=== PATIENT | male | born 1965 | race Caucasian/White ===

== ENCOUNTER 2017-11-13 20:13 | Emergency (ER) | payer BC, SELFPAY | END 2017-11-13 22:17 | disposition home or self-care (01) | PROVIDERS: Family Provider Family Medicine; PCP Family Medicine | DX: L03.317 Cellulitis of buttock (principal) | CPT/HCPCS: 99283 ==

== ENCOUNTER 2019-03-21 21:06 | Emergency (ER) | payer OTHER, SELFPAY ==
[2019-03-21 21:13] VITALS: BP 156/83; PULSE 84; RESP 16; TEMP 36.5; O2SAT 97; BMI 46.0
--- NOTE | 2019-03-21 21:31 | ED.SKABFB ---
HPI - Skin/Abscess/Foreign Bdy General Chief complaint: Skin/Abscess/Foreign Body Stated complaint: states reoccuring infection Time Seen by Provider: 03/21/19 21:08 Source: patient and family Mode of arrival: ambulatory Limitations: no limitations History of Present Illness HPI narrative: 53-year-old male nonsmoker presents with his in the chief complaint of a recurrence of some pain, redness and warmth in his lower back. He has a longstanding history of recurrent skin infections which were initially thought to be pilonidal cyst but in the end are not. Patient had a protracted hospitalization with complications at 1 point and since has been encouraged to present immediately upon development of symptoms. He states he started developing this pain about 1 hour prior to arrival. He has no systemic findings such as fever, chills nor nausea vomiting or weakness. He denies any pain in his rectum, with urination or with bowel movements. MD complaint: abscess/boil Onset (ago): hour(s) Tetanus up to date: yes Location: buttocks Severity: mild Quality: aching Pain Consistency: constant Relieving factors: none Exacerbating factors: palpation Context: none Associated symptoms: denies other symptoms Treatments prior to arrival: none Related Data Home Medications Medication Instructions Recorded Confirmed tramadol 50 mg PO QDAY #0 06/15/16 Previous Rx's Medication Instructions Recorded prednisone 50 mg PO AMCC 5 Days #0 tab 06/15/16 cephalexin 500 mg PO QID 10 Days #0 cap 06/01/17 sulfamethoxazole-trimethoprim 1 tab PO BID 10 Days #0 tab 06/01/17 cephalexin [Keflex] 500 mg PO Q6H 10 Days #0 cap 07/04/17 sulfamethoxazole-trimethoprim 1 tab PO BID 10 Days #0 tab 07/04/17 cephalexin [Keflex] 500 mg PO QID #10 cap 11/13/17 cephalexin [Keflex] 500 mg PO QID 10 Days #0 cap 11/13/17 sulfamethoxazole-trimethoprim 1 tab PO BID 10 Days #0 tab 11/13/17 doxycycline monohydrate 100 mg PO BID 10 Days #20 cap 03/21/19 tramadol [Ultram] 50 mg PO Q8H PRN #10 tab 03/21/19 Allergies Allergy/AdvReac Type Severity Reaction Status Date / Time No Known Allergies Allergy Uncoded 03/21/19 21:16 Review of Systems Constitutional Denies chills, Denies fever(s), Denies lethargy and Denies weakness Eyes Denies change in vision, Denies eye discharge, Denies irritation and Denies loss of vision ENT Ears, Nose, Mouth, and Throat: Denies change in voice, Denies neck pain and Denies sore throat Cardiovascular Denies chest pain, Denies irregular heart rhythm, Denies lightheadedness, Denies palpitations, Denies dyspnea, Denies dyspnea on exertion and Denies orthopnea Respiratory Denies cough, Denies dyspnea, Denies dyspnea on exertion and Denies wheezing Gastrointestinal Gastrointestinal: Denies abdominal pain, Denies change in bowel habits, Denies diarrhea, Denies nausea and Denies vomiting Genitourinary Denies hematuria, Denies flank pain, Denies urinary incontinence and Denies urinary urgency Musculoskeletal Denies neck pain Integumentary/Breasts Denies pruritus, Reports erythema, Denies rash, Reports skin pain and Denies wounds Neurologic Denies confusion, Denies loss of vision and Denies weakness Psychiatric Denies anxiety, Denies confusion, Denies depression, Denies homicidal ideation and Denies suicidal ideation Endocrine Denies palpitations Hematologic/Lymphatic Denies easy bruising Allergic/Immunologic Denies wheezing PFSH Social History Smoking Status: Never smoker Social History Smoking Status: Never smoker Exam Narrative Exam Narrative: GEN: AOx3 and in mild distress EYES: Pupils are equal, round, and reactive to light and accommodation. Extraoccular muscles are intact bilaterally. There is no subconjunctival hemorrhage or exudate. CHEST: Lungs are clear to auscultation bilaterally and free of wheezes, rales, or rhonchi. Heart rate is regular rhythm, there are no murmurs, clicks, rubs, or gallops. There is no chest wall tenderness. ABD: Abdomen is soft and nontender. There is no guarding or rebound. Bowel sounds are normal in all 4 quadrants. There is no mass or organomegaly. BACK: mild erythema, tenderness to palp of superior L buttock. No fluctuance EXT: Full painless ROM of all extremities with no loss of sensation or strength. SKIN: Warm, pink, and dry. No erythema or rash other than that which is stated above Initial Vital Signs Initial Vital Signs: Vital Signs Temperature 97.7 F 03/21/19 21:13 Pulse Rate 84 03/21/19 21:13 Respiratory Rate 16 03/21/19 21:13 Blood Pressure 156/83 H 03/21/19 21:13 Pulse Oximetry 97 03/21/19 21:13 Course Orders Ordered: Discontinued Medications Doxycycline Hyclate (Vibramycin) 100 mg PO NOW ONE Stop: 03/21/19 21:20 Last Admin: 03/21/19 21:32 Dose: 100 mg Vital Signs - 8 hr 03/21/19 21:13 03/21/19 22:03 Temperature 97.7 F Pulse Rate 84 71 Respiratory Rate 16 15 Blood Pressure 156/83 H 140/78 Pulse Oximetry 97 97 MDM - Skin/Abscess/Foreign Bdy MDM Narrative Medical decision making narrative: Patient has painful skin lesion with some erythema and warmth in the region of recurring infection. He has no systemic findings, labs not indicated at this point time. There is no fluctuance or induration, no incision and drainage indicated at this time. Return precautions given and patient's questions answered to his apparent satisfaction Discharge Plan Departure Patient Disposition: Home Clinical Impression: Cellulitis Qualifiers: Site of cellulitis: buttock Qualified Code(s): L03.317 - Cellulitis of buttock Discharge Date/Time: 03/21/19 22:05 Interventions: ED Discharge Assessment Last Done: 03/21/19 22:03 Instructions: DI for Cellulitis -- Adult Activity Restrictions/Additional Instructions: *You have been diagnosed with [buttock cellulitis] *What to do: *Take medications as directed: Your antibiotic has been electronically transmitted to the [facility] in [place] at your request *Follow up with your primary care provider in 2-3 days, call for an appointment. Let them know you were seen in the Emergency Department and that we ask that you be seen in follow up *Return to ER if you should have any new, worsening or concerning symptoms, such as [fever, shaking chills, sweating profusely, vomiting or other bothersome symptoms] Prescriptions: New doxycycline monohydrate 100 mg capsule 100 mg PO BID 10 Days Qty: 20 RF: 0 tramadol [Ultram] 50 mg tablet 50 mg PO Q8H PRN (Reason: pain) Qty: 10 RF: 0 No Action tramadol 50 MG tablet 50 mg PO QDAY Qty: 0 RF: 0 prednisone 50 MG tablet 50 mg PO AMCC 5 Days Qty: 0 RF: 0 sulfamethoxazole-trimethoprim 800 MG/160 MG tablet 1 tab PO BID 10 Days Qty: 0 RF: 0 cephalexin 500 MG capsule 500 mg PO QID 10 Days Qty: 0 RF: 0 cephalexin [Keflex] 500 MG capsule 500 mg PO Q6H 10 Days Qty: 0 RF: 0 sulfamethoxazole-trimethoprim 800 MG/160 MG tablet 1 tab PO BID 10 Days Qty: 0 RF: 0 sulfamethoxazole-trimethoprim 800 MG/160 MG tablet 1 tab PO BID 10 Days Qty: 0 RF: 0 cephalexin [Keflex] 500 MG capsule 500 mg PO QID Qty: 10 RF: 0 cephalexin [Keflex] 500 MG capsule 500 mg PO QID 10 Days Qty: 0 RF: 0 Referrals: Sussy Strickland DO [Primary Care Provider] -
[2019-03-21] MEDS: DOXYCYCLINE HYCLATE 100 MG TABLET PO (21:32)
[2019-03-21 22:03] VITALS: BP 140/78; PULSE 71; RESP 15; O2SAT 97
== END 2019-03-21 22:05 | disposition home or self-care (01) ==
PROVIDERS: Emergency Provider Emergency Medicine; PCP Family Medicine
DX: L03.317 Cellulitis of buttock (principal)
CPT/HCPCS: 99282; 99283

== ENCOUNTER 2020-02-20 19:22 | Emergency (ER) | payer OTHER, SELFPAY ==
[2020-02-20] VITALS (11 sets, daily range): BP systolic 109–196; BP diastolic 55–108; PULSE 102–127; RESP 15–24; TEMP 37.1; O2SAT 96–98; BMI 46.0
[2020-02-20] MEDS: SODIUM CHLORIDE 0.9% 1,000 ML 1000 ML IV (19:44)
[2020-02-20 19:51] LABS: Add Manual Diff / Slide Review NO; Basophils Absolute Auto 100 /uL (0-100); Basophils Percent Auto 0.8 % (0-2); Eosinophils Absolute Auto 100 /uL (0-450); Eosinophils Percent Auto 0.8 % (2-4); Hematocrit 46.1 % (41-53); Hemoglobin 15.3 g/dL (13.5-17.5); Lymphocytes Absolute Auto 3100 /uL (1100-4500); Lymphocytes Percent Auto 20.2 % (25-40); Mean Corpuscular HGB Conc 33.3 % (30-36); Monocytes Absolute Auto 1800 /uL (0-900); Monocytes Percent Auto 12.2 % (3-14); Neutrophils Absolute Auto 10000 /uL (1500-7000); Platelet Count 337 X10^3/uL (150-400); Red Blood Cell Count 5.29 X10^6/uL (4.5-5.9); Red Cell Distribution Width 14.6 % (11.6-14.8); White Blood Cell Count 15.2 X10^3/uL (4.5-11.0)
[2020-02-20 19:59] LABS: Alanine Aminotransferase 36 IU/L (<50); Albumin 4.5 g/dL (3.5-5.0); Albumin Globulin Ratio 1.3 (1.0-2.8); Alkaline Phosphatase 77 U/L (38-126); Aspartate Aminotransferase 35 IU/L (17-59); Bilirubin Total 0.6 mg/dL (0.2-1.3); Blood Urea Nitrogen 18 mg/dL (9-20); Calcium 9.7 mg/dL (8.4-10.2); Carbon Dioxide 26 mmol/L (22-32); Chloride 104 mmol/L (98-107); Estimated Glomerular Filt Rate > 60.0 mL/min (>60); Globulin 3.4 g/dL (1.7-4.1); Glucose 116 mg/dL (70-100); HEMOLYSIS 54 (0-50); Lactate (Lactic Acid) 1.7 mmol/L (0.7-2.1); Lipase 91 U/L (23-300); Sodium 139 mmol/L (137-145); Total Protein 7.9 g/dL (6.3-8.2)
[2020-02-20 20:18] LABS: Procalcitonin < 0.05 ng/mL (<0.5)
--- NOTE | 2020-02-20 20:32 | ED_ITS ---
HPI - Skin/Abscess/Foreign Bdy General Chief complaint: Skin/Abscess/Foreign Body Stated complaint: reoccuring infection Time Seen by Provider: 02/20/20 19:41 Source: patient Mode of arrival: Ambulatory Limitations: no limitations History of Present Illness HPI narrative: Patient is a 54-year-old male here for evaluation of body aches and when he states cellulitis in his lower back/sacral area. Patient states he has had multiple infections in the same area in the past. The last 1 was approximately 1 year ago. During his 1st infection he stated that he did have surgery for the area. Upon further discussion the patient appears that they were evaluating for potential pilonidal cyst/abscess. He states that during that surgery there was no abscess found and it was determined that it was just a cellulitis. Since that time he has had multiple infections. He states that most the time he gets placed on oral antibiotics and the symptoms improved. He has needed IV antibiotics in the past. He was told that if this ever happened again that he should come in as soon as possible to get started on antibiotics to avoid potentially having to need to be admitted for IV antibiotics. He does describe body aches and chills. No change in bowel habits. Has not tried anything for these particular symptoms prior to arrival. Related Data Home Medications Medication Instructions Recorded Confirmed tramadol 50 mg PO QDAY #0 06/15/16 Previous Rx's Medication Instructions Recorded prednisone 50 mg PO AMCC 5 Days #0 tab 06/15/16 cephalexin 500 mg PO QID 10 Days #0 cap 06/01/17 sulfamethoxazole-trimethoprim 1 tab PO BID 10 Days #0 tab 06/01/17 cephalexin [Keflex] 500 mg PO Q6H 10 Days #0 cap 07/04/17 sulfamethoxazole-trimethoprim 1 tab PO BID 10 Days #0 tab 07/04/17 cephalexin [Keflex] 500 mg PO QID #10 cap 11/13/17 cephalexin [Keflex] 500 mg PO QID 10 Days #0 cap 11/13/17 sulfamethoxazole-trimethoprim 1 tab PO BID 10 Days #0 tab 11/13/17 tramadol [Ultram] 50 mg PO Q8H PRN #10 tab 03/21/19 doxycycline hyclate 100 mg PO BID 10 Days #20 cap 02/20/20 Allergies Allergy/AdvReac Type Severity Reaction Status Date / Time No Known Drug Allergies Allergy Verified 02/20/20 19:33 Review of Systems Constitutional Constitutional: Reports chills and Reports fever(s) ENT Ears, Nose, Mouth, and Throat: Denies vertigo Cardiovascular Cardiovascular: Denies chest pain and Denies dyspnea Respiratory Respiratory: Denies dyspnea Gastrointestinal Gastrointestinal: Denies abdominal pain Musculoskeletal Musculoskeletal: Denies arthralgias and Denies myalgias Integumentary/Breasts Comments: Redness lower back/sacral area Neurologic Neurologic: Denies behavioral changes and Denies vertigo Psychiatric Psychiatric: Denies behavioral changes Hematologic/Lymphatic Hematologic/Lymphatic: Denies easy bleeding and Denies easy bruising Patient History Medical History Cellulitis (Acute) Social History Smoking Status: Never smoker Smoking Status: Never smoker alcohol intake frequency: holidays/special occasions only Substance Use Type: does not use Exam Initial Vital Signs Initial Vital Signs: Vital Signs Temperature 98.8 F 02/20/20 19:28 Pulse Rate 127 H 02/20/20 19:28 Respiratory Rate 16 02/20/20 19:28 Blood Pressure 196/108 H 02/20/20 19:28 Pulse Oximetry 98 02/20/20 19:28 Const General: cooperative, healthy appearing and comfortable Resp Effort & Inspection: normal respiratory effort Auscultation: clear to auscultation bilaterally Cardio Rate: tachycardic Rhythm: regular rhythm Skin Other: Patient with a palm size area of redness in the lower back over the sacrum. There is no fluctuance to the area. There is no drainage. Extrem General: normal to inspection and capillary refill normal Psych Appearance: grossly normal and well kempt Course Orders Ordered: ED Orders 02/20/20 21:45 Blood Culture Stat Discontinued Medications Doxycycline Hyclate (Vibramycin) 100 mg PO NOW ONE Stop: 02/20/20 21:49 Last Admin: 02/20/20 21:51 Dose: 100 mg Documented by: JAMAAL Sodium Chloride (Normal Saline 0.9%) 1,000 mls @ 1,000 mls/hr IV BOLUS ONE Stop: 02/20/20 20:40 Last Infusion: 02/20/20 21:22 Dose: 0 mls/hr Documented by: Admin: 02/20/20 19:44 Dose: 1,000 mls/hr Documented by: JAMAAL Vital Signs Vital signs: Vital Signs - 8 hr 02/20/20 19:28 Temperature 98.8 F Pulse Rate 127 H Respiratory Rate 16 Blood Pressure 196/108 H Pulse Oximetry 98 MDM - Skin/Abscess/Foreign Bdy Lab Data Attestation: I reviewed the patient's lab results. Result diagrams: 02/20/20 19:40 02/20/20 19:40 Labs: Lab Results 02/20/20 02/20/20 02/20/20 Range/Units 19:40 19:40 19:40 WBC 15.2 H (4.5-11.0) X10^3/uL RBC 5.29 (4.5-5.9) X10^6/uL Hgb 15.3 (13.5-17.5) g/dL Hct 46.1 (41-53) % MCV 87.0 (80-100) fL MCH 29.0 (26-34) PG MCHC 33.3 (30-36) % RDW 14.6 (11.6-14.8) % Plt Count 337 (150-400) X10^3/uL Neut % (Auto) 66.0 (50-75) % Lymph % (Auto) 20.2 L (25-40) % [place] % (Auto) 12.2 (3-14) % Eos % (Auto) 0.8 L (2-4) % Baso % (Auto) 0.8 (0-2) % Neut # (Auto) 42889 H (1448-5040) /uL Lymph # (Auto) 3100 (2062-6005) /uL [place] # (Auto) 1800 H (0-900) /uL Eos # (Auto) 100 (0-450) /uL Baso # (Auto) 100 (0-100) /uL Sodium 139 (137-145) mmol/L Potassium 4.0 (3.4-5.1) mmol/L Chloride 104 (98-107) mmol/L Carbon Dioxide 26 (22-32) mmol/L BUN 18 (9-20) mg/dL Creatinine 0.90 (0.66-1.25) mg/dL Estimated GFR > 60.0 (>60) mL/min BUN/Creatinine Ratio 20.0 (6-22) Glucose 116 H (70-100) mg/dL Lactate (0.7-2.1) mmol/L Calcium 9.7 (8.4-10.2) mg/dL Total Bilirubin 0.6 (0.2-1.3) mg/dL AST 35 (17-59) IU/L ALT 36 (<50) IU/L Alkaline Phosphatase 77 (38-126) U/L Total Protein 7.9 (6.3-8.2) g/dL Albumin 4.5 (3.5-5.0) g/dL Globulin 3.4 (1.7-4.1) g/dL Albumin/Globulin Ratio 1.3 (1.0-2.8) Lipase (23-300) U/L Procalcitonin < 0.05 (<0.5) ng/mL 02/20/20 02/20/20 Range/Units 19:40 19:40 WBC (4.5-11.0) X10^3/uL RBC (4.5-5.9) X10^6/uL Hgb (13.5-17.5) g/dL Hct (41-53) % MCV (80-100) fL MCH (26-34) PG MCHC (30-36) % RDW (11.6-14.8) % Plt Count (150-400) X10^3/uL Neut % (Auto) (50-75) % Lymph % (Auto) (25-40) % [place] % (Auto) (3-14) % Eos % (Auto) (2-4) % Baso % (Auto) (0-2) % Neut # (Auto) (0727-2033) /uL Lymph # (Auto) (2655-0935) /uL [place] # (Auto) (0-900) /uL Eos # (Auto) (0-450) /uL Baso # (Auto) (0-100) /uL Sodium (137-145) mmol/L Potassium (3.4-5.1) mmol/L Chloride (98-107) mmol/L Carbon Dioxide (22-32) mmol/L BUN (9-20) mg/dL Creatinine (0.66-1.25) mg/dL Estimated GFR (>60) mL/min BUN/Creatinine Ratio (6-22) Glucose (70-100) mg/dL Lactate 1.7 (0.7-2.1) mmol/L Calcium (8.4-10.2) mg/dL Total Bilirubin (0.2-1.3) mg/dL AST (17-59) IU/L ALT (<50) IU/L Alkaline Phosphatase (38-126) U/L Total Protein (6.3-8.2) g/dL Albumin (3.5-5.0) g/dL Globulin (1.7-4.1) g/dL Albumin/Globulin Ratio (1.0-2.8) Lipase 91 (23-300) U/L Procalcitonin (<0.5) ng/mL Urine Dip Bedside Urine Glucose Negative Bedside Urine Bilirubin - Negative Bedside Urine Ketone - Negative Urine Specific [place] 1.015 Bedside Urine Occult Blood - Negative Bedside Urine pH 6 Bedside Urine Protein - Negative Bedside Urine Urobilinogen - Negative Bedside Urine Nitrite - Negative Bedside Urine Leukocytes - Negative Esterase MDM Narrative Medical decision making narrative: Patient was well appearing. He was tachycardic with this did improve after fluids. Does have a leukocytosis. Does have redness over his lower back/sacrum consistent with cellulitis. Had a long discussion with the patient regarding the symptoms. We did discuss potentially doing a CT scan to evaluate for a deeper infection. I did inform him that this is a possibility. After this discussion the patient opted to hold on any CT scan stating that he has had symptoms similar to this in the past and has had multiple CT scans any states that no abscesses ever been found. We did discuss potentially admitting him to the hospital for IV antibiotics however he would like to try oral antibiotics and being discharged home 1st. A review of his notes shows that he was here in this emergency department approximately 1 year ago for symptoms very similar to this. He states that was the last time he had an infection like this. It appears he was sent home on doxycycline. He does remember getting this medication at that time. He was given 1st dose here in the ER. He held it down without any problems. Is not a vomiting. Will send home with a prescription for the same medication. Patient was given strict return precautions and follow-up instructions. He expressed understanding and agreement. Discharge Plan Departure Patient Disposition: Home Clinical Impression: Cellulitis Qualifiers: Site of cellulitis: buttock Qualified Code(s): L03.317 - Cellulitis of buttock Discharge Date/Time: 02/20/20 22:28 Instructions: DI for Cellulitis -- Adult Activity Restrictions/Additional Instructions: A prescription for antibiotics was electronically transmitted to [facility] in [place]. Start taking them tomorrow as directed. Contact your primary provider for follow-up. Return to the emergency department for any new or worsening symptoms Prescriptions: New doxycycline hyclate 100 mg capsule 100 mg PO BID 10 Days Qty: 20 RF: 0 No Action tramadol 50 MG tablet 50 mg PO QDAY Qty: 0 RF: 0 prednisone 50 MG tablet 50 mg PO AMCC 5 Days Qty: 0 RF: 0 sulfamethoxazole-trimethoprim 800 MG/160 MG tablet 1 tab PO BID 10 Days Qty: 0 RF: 0 cephalexin 500 MG capsule 500 mg PO QID 10 Days Qty: 0 RF: 0 cephalexin [Keflex] 500 MG capsule 500 mg PO Q6H 10 Days Qty: 0 RF: 0 sulfamethoxazole-trimethoprim 800 MG/160 MG tablet 1 tab PO BID 10 Days Qty: 0 RF: 0 sulfamethoxazole-trimethoprim 800 MG/160 MG tablet 1 tab PO BID 10 Days Qty: 0 RF: 0 cephalexin [Keflex] 500 MG capsule 500 mg PO QID Qty: 10 RF: 0 cephalexin [Keflex] 500 MG capsule 500 mg PO QID 10 Days Qty: 0 RF: 0 tramadol [Ultram] 50 mg tablet 50 mg PO Q8H PRN (Reason: pain) Qty: 10 RF: 0 Referrals: Sussy Strickland DO [Primary Care Provider] -
[2020-02-20] MEDS: DOXYCYCLINE HYCLATE 100 MG TABLET PO (21:51)
== END 2020-02-20 22:28 | disposition home or self-care (01) ==
PROVIDERS: Emergency Provider Emergency Medicine; PCP Family Medicine
DX: L03.317 Cellulitis of buttock (principal); R00.0 Tachycardia, unspecified; R50.9 Fever, unspecified; D72.829 Elevated white blood cell count, unspecified
CPT/HCPCS: 36415; 80053; 81003; 83605; 83690; 84145; 85025; 87040; 93005; 96360; 96361; 99284

== ENCOUNTER 2020-06-02 15:21 | Emergency (ER) | payer OTHER, SELFPAY ==
[2020-06-02 15:30] VITALS: BP 140/68; PULSE 71; RESP 18; TEMP 36.8; O2SAT 97
[2020-06-02 18:16] VITALS: BP 139/79; PULSE 79; RESP 18; O2SAT 95
--- NOTE | 2020-06-02 20:26 | ED.WOUNDLAC ---
HPI - Wound/Laceration <Jc WillisCJ MclainP - Last Filed: 06/02/20 20:42> General Chief Complaint: Wound/Laceration Stated Complaint: states re occuring infection Time Seen by Provider: 06/02/20 17:35 Source: patient Mode of arrival: Ambulatory Limitations: no limitations History of Present Illness HPI narrative: This is a 54-year-old male, nonsmoker, who has past medical history significant for frequent cellulitis on right buttock with possible pilonidal cyst, ischemic stroke and takes Plavix daily, hypertension presents to ED with right buttock redness, discomfort and form to touch but he noticed at 2:00 p.m. today. Patient denies fever, chills, nausea or vomiting. Patient reports if he takes antibiotic medication early on, a cellulitis of size and does not require surgical procedure. In the past, thought patient had abscess or pilonidal cyst and had surgical procedure on sacrum without any abscess found and was told he had cellulitis. Last antibiotic medication used in January 2020 and treated with doxycycline which resolved his symptoms. Patient denies history of diabetes. PCP Dr. Joya. Related Data Home Medications Medication Instructions Recorded Confirmed clopidogrel 06/02/20 lisinopril 06/02/20 Previous Rx's Medication Instructions Recorded doxycycline hyclate 100 mg PO BID 10 Days #20 cap 06/02/20 Allergies Allergy/AdvReac Type Severity Reaction Status Date / Time No Known Drug Allergies Allergy Verified 02/20/20 19:33 Review of Systems <Jc Gleasonestefany [facility] - Last Filed: 06/02/20 20:42> Review of Systems Narrative: General: Denies fever, chills, fatigue, malaise, sweats. Respiratory: Denies dyspnea, cough, wheezing, hemoptysis, sputum. Cardiovascular: Denies chest pain, palpitations, orthopnea, edema. Gastrointestinal: Denies nausea, vomiting, abdominal pain, diarrhea, constipation, melena. : Denies dysuria, frequency, incontinence, hematuria, urinary retention. Musculoskeletal: Denies weakness, joint pain or bony pain. Skin: See HPI Neurologic: Denies weakness, headache, numbness, change in speech, confusion, seizures, incoordination. Psychiatric: No concerning psychosocial issues. Patient History <CJ MederosP - Last Filed: 06/02/20 20:42> Medical History Cellulitis (Acute) Hypertension (Acute) Ischemic stroke (Acute) Social History Smoking Status: Never smoker Smoking Status: Never smoker alcohol intake frequency: holidays/special occasions only Substance Use Type: does not use Exam <MEHUL Mederos - Last Filed: 06/02/20 20:42> Narrative Exam Narrative: General appearance: well developed, well nourished, in no acute distress. Head: normocephalic, atraumatic, no scalp lesions, non-tender. ENT: Hearing grossly intact. Nose without bleeding, purulent discharge, septal hematoma or deviation. Turbinate without erythema or swelling. Mucous membrane moist, no mucosal lesion. Throat without erythema, tonsillar hypertrophy or exudate. Uvula in midline, airway patent. Neck/Thyroid: neck supple, full range of motion, no visible masses or meningeal signs. No JVD, non-tender without lymphadenopathy. Skin: no suspicious rashes, lesions over visible areas. Warm and dry and appropriate color for ethnicity. Heart: no clubbing, no cyanosis, no edema. S1 and S2 normal. RRR w/o murmurs, clicks, or bruits. Lungs: Breathing even and unlabored. No stridor. No accessory muscles used. Able to speak in full sentences. Chest: normal shape and expansion. Abdomen: non-obese, non-distended. Neurologic: alert and oriented. Cognitive exam, [employer]ERK and PNS grossly intact on informal exam. Psych: good eye contact, normal affect. Initial Vital Signs Initial Vital Signs: Vital Signs Temperature 98.2 F 06/02/20 15:30 Pulse Rate 71 06/02/20 15:30 Respiratory Rate 18 06/02/20 15:30 Blood Pressure 140/68 06/02/20 15:30 Pulse Oximetry 97 06/02/20 15:30 Skin General: erythema Other: Right buttock with approximately 4-5 cm mild erythematous without warmth or swelling on right buttock. About 1 cm in diameter in duration in this lesion. No drainage appreciated. Mild tenderness to palpate. <Guy Pandey DO - Last Filed: 06/03/20 04:34> Initial Vital Signs Initial Vital Signs: Vital Signs Temperature 98.2 F 06/02/20 15:30 Pulse Rate 71 06/02/20 15:30 Respiratory Rate 18 06/02/20 15:30 Blood Pressure 140/68 06/02/20 15:30 Pulse Oximetry 97 06/02/20 15:30 Scores <[facility] CURB ATTENDANT - Last Filed: 06/02/20 20:42> GCS [place] coma scale eye opening: Spontaneous Denzel coma scale verbal response: Orientated [place] coma scale motor response: Obey commands Denzel coma scale total score: 15 qSOFA Altered Mental Status (GCS <15): No Respiratory rate greater than/equal to 22: No Systolic blood pressure less than or equal to 100: No qSOFA Total: 0 0-1 Not High Risk 1-3 High risk Course <[facility] - Last Filed: 06/02/20 20:42> Vital Signs Vital signs: Vital Signs - 8 hr 06/02/20 15:30 06/02/20 18:16 Temperature 98.2 F Pulse Rate 71 79 Respiratory Rate 18 18 Blood Pressure 140/68 139/79 Pulse Oximetry 97 95 <Guy Pandey DO - Last Filed: 06/03/20 04:34> Vital Signs Vital signs: Vital Signs - 8 hr 06/02/20 15:30 06/02/20 18:16 Temperature 98.2 F Pulse Rate 71 79 Respiratory Rate 18 18 Blood Pressure 140/68 139/79 Pulse Oximetry 97 95 MDM - Wound/Laceration <[facility] - Last Filed: 06/02/20 20:42> Differential Diagnosis Differential diagnosis: Likely abscess and other (Cellulitis) Medical Records Attestation: I reviewed the patient's medical records. [facility] Narrative Medical decision making narrative: This is a 54 year male who presents to ED with recurring cellulitis on right buttock. Physical exam is consistent with early cellulitis with mild erythema, warmth without significant swelling but small area of induration. Patient is afebrile with stable vital signs without tachycardia, tachypnea or hypotension. Considered blood test but will defer at this time and will treat with oral antibiotic medication doxycycline b.i.d. for 10 day course. Strict return precautions were discussed with patient, then will warrant blood tests and possible CT test. Patient agrees with current treatment plan. Advised to use warm pack on affected site frequently next several days. Patient advised to return to ED if there is fluctuance on right buttock and requires incision and drainage. Return precautions were discussed with patient and advised follow-up with primary care physician in 2-3 days for recheck and patient verbalized understanding and in agreement with treatment plan. Discharge Plan Departure Patient Disposition: Home Clinical Impression: Cellulitis of buttock, right Discharge Date/Time: 06/02/20 18:18 Instructions: DI for Cellulitis -- Adult Activity Restrictions/Additional Instructions: You have been diagnosed with [right buttock cellulitis.]. What to do: *Take your medications as directed. Please start doxycycline twice a day for next 10 days. Please use warm pack on affected site. *Follow up with your primary care provider in 2-3 days, call for an appointment for skin recheck. Let them know you were seen in the ED and that we asked you to be seen in follow up. *Return to ED if you have any new, worsening, or concerning symptoms, such as [fever, chills, increasing pain, soft spot that needs to be drained, chest pain, breathing difficulty, unable to tolerate fluids or any acute concerns]. Prescriptions: New doxycycline hyclate 100 mg capsule 100 mg PO BID 10 Days Qty: 20 RF: 0 No Action clopidogrel 75 mg tablet RF: 0 lisinopril 20 mg tablet RF: 0 Referrals: Sussy Strickland DO [Primary Care Provider] - <Guy Pandey DO - Last Filed: 06/03/20 04:34> Cosign ED Attending Swapna Attestation: I was immediately available in the department for consultation. This documentation has been reviewed and I agree with assessment and plan. Supervised by Guy Pandey DO
== END 2020-06-02 18:18 | disposition home or self-care (01) ==
PROVIDERS: Emergency Provider Nurse Practitioner Family; PCP Family Medicine
DX: L03.317 Cellulitis of buttock (principal)
CPT/HCPCS: 99281

== ENCOUNTER 2020-11-07 23:41 | Emergency (ER) | payer OTHER, SELFPAY ==
[2020-11-07 23:53] VITALS: BP 136/71; PULSE 88; RESP 18; TEMP 36.7; O2SAT 99
--- NOTE | 2020-11-07 23:56 | ED_ITS ---
HPI - General Adult General Chief complaint: Skin/Abscess/Foreign Body Stated complaint: infection (cellulitis) on lower back Time Seen by Provider: 11/07/20 23:43 Source: patient Mode of arrival: Ambulatory Limitations: no limitations History of Present Illness HPI narrative: Patient is a 55-year-old male who has been seen multiple times in the past for recurrent cellulitis to his right upper buttock. He states that every time that he gets this he is placed on doxycycline and the symptoms improved. Since the last time he is here he has seen his primary doctor and was told that once the COVID-19 pandemic well as resolved that he should go and see a infectious disease provider. He states that yesterday he just started noticing some redness and discomfort to his right buttock area. No fevers. Has not tried anything for symptoms prior to arrival. Related Data Home Medications Medication Instructions Recorded Confirmed clopidogrel 06/02/20 lisinopril 06/02/20 Previous Rx's Medication Instructions Recorded doxycycline hyclate 100 mg PO BID 3 Days #6 tab 11/08/20 doxycycline hyclate 100 mg PO BID 7 Days #14 tab 11/08/20 Allergies Allergy/AdvReac Type Severity Reaction Status Date / Time No Known Drug Allergies Allergy Verified 02/20/20 19:33 Review of Systems Constitutional Constitutional: Denies fever(s) Integumentary/Breasts Comments: Redness right upper buttock Neurologic Neurologic: Denies behavioral changes Psychiatric Psychiatric: Denies behavioral changes Hematologic/Lymphatic On Anticoagulants: No Allergic/Immunologic Allergic/Immunologic: Denies urticaria Patient History Medical History Cellulitis Hypertension Ischemic stroke Social History Smoking Status: Never smoker Smoking Status: Never smoker alcohol intake frequency: holidays/special occasions only Substance Use Type: does not use Exam Initial Vital Signs Initial Vital Signs: Vital Signs Temperature 98.1 F 11/07/20 23:53 Pulse Rate 88 11/07/20 23:53 Respiratory Rate 18 11/07/20 23:53 Blood Pressure 136/71 11/07/20 23:53 Pulse Oximetry 99 11/07/20 23:53 Const General: cooperative and comfortable Limitations: mental status not altered HENOR Head: normal to inspection and normocephalic Skin Other: Patient with a fairly large area of cellulitis extending from the superior aspect of his intergluteal cleft over the right upper buttock. There is no vesicles. No pustules. Some underlying induration but no abscess felt. Neuro General: patient alert and patient awake Cognition: normal cognition Speech: speech normal Extrem General: capillary refill normal Psych Appearance: grossly normal and well kempt Course Orders Ordered: Discontinued Medications Doxycycline Hyclate (Doxycycline Hyclate 100 Mg Tablet) 100 mg PO NOW ONE Stop: 11/07/20 23:57 Last Admin: 11/07/20 23:59 Dose: 100 mg Documented by: TODD Vital Signs Vital signs: Vital Signs - 8 hr 11/07/20 23:53 Temperature 98.1 F Pulse Rate 88 Respiratory Rate 18 Blood Pressure 136/71 Pulse Oximetry 99 Medical Decision Making MDM Narrative Medical decision making narrative: Physical exam today is consistent with cellulitis to his right upper buttock area. Does not appear to be any abscess. He has had symptoms like this several times in the past and he states that every time he receives a prescription for doxycycline and the symptoms improved. He is given a dose here in the ER. Initially 7 days of doxycycline was sent to the pharmacy of his choosing however he stated that normally he gets 10 days so he was given a written prescription for remainder 3 days. Was given return precautions and follow-up instructions. Do a low suspicion for deep infection based on his physical exam today. His physical exam is also not consistent with pilonidal cyst. He expressed understanding and agreement plan. Discharge Plan Departure Patient Disposition: Home Clinical Impression: Cellulitis of buttock, right Instructions: DI for Cellulitis -- Adult Activity Restrictions/Additional Instructions: I do recommend that you contact your primary provider for a follow-up. The remainder of a course of antibiotics electronically transmitted to [facility] in [place]. Start taking it as directed. Return to the emergency department for any new or worsening symptoms Prescriptions: New doxycycline hyclate 100 mg tablet 100 mg PO BID 7 Days Qty: 14 RF: 0 doxycycline hyclate 100 mg tablet 100 mg PO BID 3 Days Qty: 6 RF: 0 No Action clopidogrel 75 mg tablet RF: 0 lisinopril 20 mg tablet RF: 0 Referrals: Sussy Strickland, [Primary Care Provider] -
[2020-11-07] MEDS: DOXYCYCLINE HYCLATE 100 MG TABLET PO (23:59)
== END 2020-11-08 00:12 | disposition home or self-care (01) ==
PROVIDERS: Emergency Provider Emergency Medicine; PCP Family Medicine
DX: L03.317 Cellulitis of buttock (principal)
CPT/HCPCS: 99283

== ENCOUNTER 2020-12-05 20:17 | Emergency (ER) | payer OTHER, SELFPAY ==
[2020-12-05 20:20] VITALS: BP 150/83; PULSE 77; RESP 18; TEMP 37.1; O2SAT 97
--- NOTE | 2020-12-06 00:36 | ED.SKABFB ---
HPI - Skin/Abscess/Foreign Bdy General Chief complaint: Skin/Abscess/Foreign Body Stated complaint: states has an infection Time Seen by Provider: 12/06/20 00:36 Source: patient Mode of arrival: Ambulatory History of Present Illness HPI narrative: 55-year-old gentleman with recurrent episode of infection neck intergluteal cleft/right buttock cheek. Approximately 5 years ago he had surgery thinking that this is a pilonidal cyst home and it was not. He has had recurrent episodes of infection at the same site that always seems to improve with doxycycline. In the past is gone anywhere from 4 months to year between episodes of concern. His last episode was mid October and he presents today with increasing sensation of irritation and slight redness which always precedes worsening infection. He notes that with the infection in October he diligently had yogurt with every single dose of doxycycline and in retrospect and reading pharmacy information instructions were to have no milk or dairy within 2 hours of taking the antibiotic. He is not having fevers, chills, spreading cellulitis, abdominal pain, dysuria, constipation, myalgias, palpitations or dyspnea. Related Data Home Medications Medication Instructions Recorded Confirmed clopidogrel 06/02/20 lisinopril 06/02/20 Previous Rx's Medication Instructions Recorded doxycycline hyclate 100 mg PO BID #20 tab 12/06/20 Allergies Allergy/AdvReac Type Severity Reaction Status Date / Time No Known Drug Allergies Allergy Verified 02/20/20 19:33 Review of Systems Review of Systems Narrative: Remainder of complete review of systems is otherwise unremarkable except for that included in the HPI. Patient History Medical History Cellulitis Hypertension Ischemic stroke Social History Smoking Status: Never smoker Smoking Status: Never smoker alcohol intake frequency: holidays/special occasions only Substance Use Type: does not use Exam Narrative Exam Narrative: General: Alert appropriate in no acute distress Respiratory: Able to speak in full sentences, no obvious respiratory distress Skin: warm and dry, skin at the top of the intergluteal cleft is slightly erythematous with no obvious abscess or drainage site. Neurologic: Grossly intact no obvious asymmetries or abnormalities Psych: appropriate insight and affect, cooperative Initial Vital Signs Initial Vital Signs: Vital Signs Temperature 98.8 F 12/05/20 20:20 Pulse Rate 77 12/05/20 20:20 Respiratory Rate 18 12/05/20 20:20 Blood Pressure 150/83 H 12/05/20 20:20 Pulse Oximetry 97 12/05/20 20:20 Course Orders Ordered: Discontinued Medications Doxycycline Hyclate (Doxycycline Hyclate 100 Mg Tablet) 100 mg PO NOW ONE Stop: 12/06/20 01:04 Last Admin: 12/06/20 01:13 Dose: 100 mg Documented by: TODD Vital Signs Vital signs: Vital Signs - 8 hr 12/05/20 20:20 Temperature 98.8 F Pulse Rate 77 Respiratory Rate 18 Blood Pressure 150/83 H Pulse Oximetry 97 MDM - Skin/Abscess/Foreign Bdy Medical Records Attestation: I reviewed the patient's medical records. [facility] Narrative Medical decision making narrative: 55-year-old gentleman presents with recurrent episode of what appears to be cellulitis at the top of the intergluteal cleft not related to pilonidal cyst. As doxycycline has been effective in the past will prescribe this again. Unfortunately records from 5 years ago when he had surgical excision and cultures done of this are not available to me. He is planning on following up with his primary care physician and they had already discussed outpatient follow-up with infection Disease given the recurrent nature of these episodes. At this time there is no evidence of sepsis, no developing abscess no need for surgical intervention and he is discharged home with doxycycline and instructions to follow-up with his primary care physician. Discharge Plan Departure Patient Disposition: Home Clinical Impression: Cellulitis of buttock, right Instructions: DI for Cellulitis -- Adult Activity Restrictions/Additional Instructions: Thank you for coming in today It is very appropriate to start antibiotics at this time and without overt infection hospitalization an additional blood work is not required. [facility] [place] [facility] today I did look through our electronic medical record system and unfortunately the surgery that you had with Dr. Martinez was done prior to changing our electronic medical record and I do not have access to any cultures that may have been done at that time. Please complete the entire course of doxycycline, if your having worsening symptoms you do need to return to the emergency department. Please follow-up with Dr. Strickland to discuss referral to Infectious Disease to see if they have additional thoughts or ideas to prevent recurrent episodes for you. Prescriptions: New doxycycline hyclate 100 mg tablet 100 mg PO BID Qty: 20 RF: 0 No Action clopidogrel 75 mg tablet RF: 0 lisinopril 20 mg tablet RF: 0 Referrals: Sussy Strickland DO [Primary Care Provider] -
[2020-12-06] MEDS: DOXYCYCLINE HYCLATE 100 MG TABLET PO (01:13)
== END 2020-12-06 01:12 | disposition home or self-care (01) ==
PROVIDERS: Emergency Provider Emergency Medicine; PCP Family Medicine
DX: L03.317 Cellulitis of buttock (principal)
CPT/HCPCS: 99283

== ENCOUNTER 2021-01-02 18:05 | Emergency (ER) | payer OTHER, SELFPAY ==
[2021-01-02 18:09] VITALS: BP 157/79; PULSE 97; RESP 16; TEMP 37.1; O2SAT 95
--- NOTE | 2021-01-02 19:41 | ED_ITS ---
HPI - Skin/Abscess/Foreign Bdy General Chief complaint: Skin/Abscess/Foreign Body Stated complaint: INFECTION ON LOWER BACK Time Seen by Provider: 01/02/21 19:41 Source: patient Mode of arrival: Ambulatory Limitations: no limitations History of Present Illness HPI narrative: This is a 55-year-old male comes with complaint of infection in his lower right lower buttock/back area. Patient has had multiple episodes in this area. He states was seen by Dr. Martinez had attempted surgical drainage in the OR but was found only have cellulitis and not an actual pilonidal cyst more infected abscess at that time. Patient has had recurrent episodes he initially was treated with Keflex and Bactrim which was very helpful. They switched him to doxycycline which seem to be helpful but he has had less than less time in between episodes of infection since then with most recently being treated at the beginning of November. He actually has an appointment with infectious disease on for evaluation. He has noticed increasing redness in the area again. He denies any fevers. He had chills the other day. He denies any other systemic symptoms. Takes medication for hypertension as well Plavix. Denies any diabetes. Patient denies any allergies to medications. Related Data Home Medications Medication Instructions Recorded Confirmed clopidogrel 06/02/20 lisinopril 06/02/20 Previous Rx's Medication Instructions Recorded doxycycline hyclate 100 mg PO BID #20 tab 12/06/20 cephalexin 500 mg PO Q6H 10 Days #40 cap 01/02/21 sulfamethoxazole-trimethoprim 1 tab PO Q12H #20 tab 01/02/21 [Bactrim DS] Allergies Allergy/AdvReac Type Severity Reaction Status Date / Time No Known Drug Allergies Allergy Verified 02/20/20 19:33 Review of Systems Review of Systems ROS Unobtainable: All systems reviewed & are unremarkable except as noted in HPI and below Patient History Medical History Cellulitis Hypertension Ischemic stroke Social History Smoking Status: Never smoker Smoking Status: Never smoker alcohol intake frequency: holidays/special occasions only Substance Use Type: does not use Exam Narrative Exam Narrative: GENERAL: Alert and oriented x three, obese male in mild distres s. HEENT: Head normocephalic, atraumatic, EOMI, pupils reactive, face symmetric, moist mucous membranes NECK: Supple, full range of motion CARDIOVASCULAR: Regular rate and rhythm without murmurs, rubs or gallops. RESPIRATORY: Breath sounds equal bilaterally, no wheezes rales or rhonchi. ABDOMEN: Soft, nontender. Normoactive bowel sounds all 4 quadrants. No guarding or rebound, rigidity, no mass. Patient has erythema of the right upper gluteal crease with some slight induration but no fluctuance or palpable fluid collection. Patient does have a healed incision just above the gluteal crease. Area of erythema is approximately 3 cm in circumference. There is also some slight erythema extend during the left side of the crease. : No CVA tenderness EXTREMITIES: Normal range of motion, no clubbing or edema. Neurovascularly intact NEUROLOGICAL: Cranial nerves II through XII grossly intact. Moving all extremities. Normal gait. SKIN: Warm, dry, no petechiae, no rashes or lesions. Initial Vital Signs Initial Vital Signs: Vital Signs Temperature 98.8 F 01/02/21 18:09 Pulse Rate 97 H 01/02/21 18:09 Respiratory Rate 16 01/02/21 18:09 Blood Pressure 157/79 H 01/02/21 18:09 Pulse Oximetry 95 01/02/21 18:09 Course Orders Ordered: Discontinued Medications Cephalexin HCl (Cephalexin 250 Mg Capsule) 500 mg PO NOW ONE Stop: 01/02/21 19:50 Last Admin: 01/02/21 19:55 Dose: 500 mg Documented by: ESTEE Trimethoprim/Sulfamethoxazole (Trimeth/Sulfa 160/800 (Ds) Tablet) 1 tab PO NOW ONE Stop: 01/02/21 19:50 Last Admin: 01/02/21 19:54 Dose: 1 tab Documented by: ESTEE Vital Signs Vital signs: Vital Signs - 8 hr 01/02/21 18:09 Temperature 98.8 F Pulse Rate 97 H Respiratory Rate 16 Blood Pressure 157/79 H Pulse Oximetry 95 MDM - Skin/Abscess/Foreign Bdy MDM Narrative Medical decision making narrative: 55-year-old male with recurrent cellulitis of the right buttock/back. Patient has at least 5 or 6 rounds of doxycycline with increasing frequency of infection in the same location. He has had 1 attempted drainage in the OR and was found to just have cellulitis and had CT imaging afterwards which confirmed this. Patient is supposed to see infectious disease on but noticed his symptoms were returning once again and discussed will try it the same combination of medications that was the most helpful injoyce farfan and had the longest episode without recurrent infection. Discharge Plan Departure Patient Disposition: Home Clinical Impression: Cellulitis of buttock, right Instructions: DI for Cellulitis -- Adult Activity Restrictions/Additional Instructions: Follow-up with infectious disease as planned later this week. That seems like a very appropriate plan. Prescription to [facility] in [place]. Keep area clean and dry and wash daily. Please return for fevers, rapidly worsening redness, swelling, increasing pain, drainage, the area is becoming significantly uncomfortable, if you are having diaphoresis, lightheadedness, new chest pain or shortness of breath, abdominal pain, rectal pain, black or bloody stools or other new or concerning symptoms. Prescriptions: New sulfamethoxazole-trimethoprim [Bactrim DS] 800-160 mg tablet 1 tab PO Q12H Qty: 20 RF: 0 cephalexin 500 mg capsule 500 mg PO Q6H 10 Days Qty: 40 RF: 0 No Action clopidogrel 75 mg tablet RF: 0 lisinopril 20 mg tablet RF: 0 doxycycline hyclate 100 mg tablet 100 mg PO BID Qty: 20 RF: 0 Referrals: Sussy Strickland DO [Primary Care Provider] -
[2021-01-02] MEDS: TRIMETH/SULFA 160/800 (DS) TABLET 1 TAB PO (19:54)
[2021-01-02] MEDS: cephALEXin 250 MG CAPSULE 500 MG PO (19:55)
== END 2021-01-02 20:00 | disposition home or self-care (01) ==
PROVIDERS: Emergency Provider Emergency Medicine; PCP Family Medicine
DX: L03.317 Cellulitis of buttock (principal)
CPT/HCPCS: 99283